=== PATIENT | male | born 1990 | race African-American/Black ===

== ENCOUNTER 2017-09-15 10:28 | Day surgery (SDC) | payer MEDICAID ==
[2017-09-12 16:02] LABS: BASOPHILS 0.2 % (0-2); EOSINOPHILS 0.1 % (0-7); HEMATOCRIT 42.7 % (42.0-54.0); HEMOGLOBIN 14.6 g/dL (13.5-17.5); IMMATURE GRANULOCYTES 0.3 % (0-5); LYMPHOCYTES 10.6 % (15-50); MCH 32.2 pg (26.0-34.0); MCHC 34.2 g/dL (31.0-37.0); MCV 94.3 fL (80.0-100.0); MEAN PLATELET VOLUME 10.3 fL (7.4-10.4); MONOCYTES 2.6 % (2-11); NEUTROPHILS 86.2 % (40-80); PLATELET COUNT 269 10x3/uL (130-400); RBC 4.53 10x6/uL (4.20-6.10); WBC 12.6 10x3/uL (4.8-10.8)
[2017-09-12 16:20] LABS: APPEARANCE CLEAR (CLEAR); BILIRUBIN NEGATIVE (NEGATIVE); COLOR YELLOW (YELLOW); GLUCOSE NEGATIVE (NEGATIVE); KETONE NEGATIVE (NEGATIVE); NITRITE NEGATIVE (NEGATIVE); PROTEIN NEGATIVE (NEGATIVE); UROBILINOGEN NORMAL (NORMAL)
[~2017-09-15] VITALS: Ht 172.7 cm; Wt 70.3 kg
[~2017-09-15 10:28] MED LIST: BACTRIM DS TABL1 TAB PO; HYDROCODONE-APA1 TAB PO; SANTYL30 GM TP
[2017-09-15 12:22] VITALS: BP 112/62; Ht 172.7 cm; Wt 70.3 kg
[2017-09-15] MEDS ORDERED: HYDROCODONE-APA1 TAB PO (14:59)
[2017-09-30] MEDS ORDERED: ENDOCET 10-3251 TAB PO (16:41)
--- NOTE | 2017-10-02 14:06 | OP ---
PATIENT NAME: MELVA ARGUETA MEDICAL RECORD: [id number] :88 LOCATION:D.OPS ADMISSION DATE: SURGEON: MARCOS WARREN MD DATE OF OPERATION: 09/15/2017 DATE OF OPERATION: 09/14/2017 PREOPERATIVE DIAGNOSIS: Open wound of the right tibia. POSTOPERATIVE DIAGNOSIS: Open wound of the right tibia. PROCEDURE: Excisional debridement of the open wound of the right tibia and treatment with Neox Bimal and Amniox graft. OPERATIVE SUMMARY IN DETAIL: After obtaining the appropriate preoperative orthopedic surgery consent as well as anesthetic consultation, evaluation and clearance, the patient was brought to the operating room and placed on the operating table in supine position. After adequate general laryngeal mask airway was administered, right lower extremity was prepped and draped in routine sterile fashion. Combination of curettage, scalpel as well as rongeurs were used to debride the area of opening. The plate on the tibia was clearly visualized. This area was copiously irrigated, slight undermining was then followed by sewing the Neox graft under the edges of the wound. A 4 x 3 Neox graft was sewn in using Amniox tissue itself. Neox Bimal was then reconstituted in saline and injected in about the area to aid with wound healing. Having completed this, sterile dressings were applied. The patient was awakened, taken to the recovery room in stable condition. All final needle and sponge counts were correct. TRANSINT:[id number] Voice Confirmation ID: [id number] DOCUMENT ID: [id number] MARCOS WARREN MD at 1406 CC: [id number] DICTATION DATE: 09/29/17 1529 MANAGER MARKETING SALES: 09/29/17 1644 [facility] 09/15/[address] [address]
== END 2017-09-15 17:15 | disposition home or self-care (01) ==
LOC: D.OPS 10:28 → D.PAN 14:30 → D.OPS 17:15
PROVIDERS: Anesthesiology
DX: S81.801A Unspecified open wound, right lower leg, initial encounter (principal); F17.200 Nicotine dependence, unspecified, uncomplicated; K21.9 Gastro-esophageal reflux disease without esophagitis; Z01.812 Encounter for preprocedural laboratory examination

== ENCOUNTER 2017-10-02 10:31 | Day surgery (SDC) | payer MEDICAID ==
[~2017-10-02] VITALS: Ht 175.3 cm; Wt 68.0 kg
--- NOTE | ~2017-10-02 | OP ---
PATIENT NAME: MELVA ARGUETA MEDICAL RECORD: [id number] :88 LOCATION:D.OPS ADMISSION DATE: SURGEON: MARCOS WARREN MD DATE OF OPERATION: 10/02/2017 PREOPERATIVE DIAGNOSIS: Open wound of the right ankle. POSTOPERATIVE DIAGNOSIS: Open wound of the right ankle. PROCEDURES: Excisional debridement of the open wound with application of both knee autograft and Vitagel. SURGEON: Marcos Warren MD ANESTHESIA: General. INTRAOPERATIVE COMPLICATIONS: None. SUMMARY OF PATHOLOGIC FINDINGS: Essentially, the wound was closed down to just about 1 screw in this very critical place to get the plate covered. OPERATIVE SUMMARY IN DETAIL: After obtaining the appropriate consent as well as anesthetic consultation, evaluation and clearance, the patient was brought to the operating room and placed on the operating table in supine position. After adequate general laryngeal mask was administered, the patient's right lower extremity was prepped and draped in routine sterile fashion. Very gentle use of a scalpel as well as rongeur and curette were used to clear away any appearing debris. At this point, a bulb syringe irrigation was used to try and decrease the bacterial colonization. Vitagel, that is the patient's own PRP mixed with synthetic collagen and prothrombin were placed into the cavity, this was then oversewn with Amniox graft of umbilical tissue. Sterile dressings were applied. He was awakened and taken to recovery room in stable condition. All final needle and sponge counts were correct. TRANSINT:[id number] Voice Confirmation ID: [id number] DOCUMENT ID: [id number] 10/21/2017 Edited per officethiago. BRIANA MORRISON, MARCOS PATINO at 1207 CC: [id number] DICTATION DATE: 10/17/17 1505 INFORMATION SYSTEMS COORDINATOR: 10/17/17 1541 [facility] 10/02/17 [place] [id number]
[~2017-10-02 10:31] MED LIST changes: +ENDOCET 10-3251 TAB PO
[2017-10-02 11:34] VITALS: BP 134/39; Ht 175.3 cm; Wt 68.0 kg
[2017-10-02] MEDS ORDERED: HYDROCODONE-APA1 TAB PO (13:03)
== END 2017-10-02 14:50 | disposition home or self-care (01) ==
LOC: D.OPS 10:31 → D.PAN 12:45 → D.OPS 14:50
DX: S81.801A Unspecified open wound, right lower leg, initial encounter (principal); F17.200 Nicotine dependence, unspecified, uncomplicated; Z01.812 Encounter for preprocedural laboratory examination

== ENCOUNTER 2017-11-06 11:52 | Inpatient (IN) | payer MEDICAID ==
[2017-11-04 08:31] LABS: BASOPHILS 0.3 % (0-2); EOSINOPHILS 3.4 % (0-7); HEMATOCRIT 44.5 % (42.0-54.0); HEMOGLOBIN 14.8 g/dL (13.5-17.5); LYMPHOCYTES 36.6 % (15-50); MCH 32.1 pg (26.0-34.0); MCHC 33.3 g/dL (31.0-37.0); MCV 96.5 fL (80.0-100.0); MONOCYTES 7.3 % (2-11); NEUTROPHILS 52.4 % (40-80); RBC 4.61 10x6/uL (4.20-6.10); WBC 7.6 10x3/uL (4.8-10.8)
[2017-11-04 08:33] LABS: PLATELET COUNT 191 10x3/uL (130-400)
[~2017-11-06] VITALS: Ht 175.3 cm; Wt 62.3 kg
--- NOTE | ~2017-11-06 | OP ---
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 PROCEDURES: 1. Removal of previously placed tibial plate. 2. Excisional debridement of area of infection to include skin, subcutaneous tissue, portions of fat, fascia, muscle and bone. 3. Intramedullary fixation of infected nonunion of the right tibia. SURGEON: Marcos Warren MD ANESTHESIA: General. INTRAOPERATIVE COMPLICATIONS: None. SUMMARY OF PATHOLOGIC FINDINGS: The patient indeed did have a nonunion; however, there was more adherent stability than one would think. These did require curettage between the 2 bone ends as well as removal of any infectious appearing material around the small area that was still open from the index procedure, and after the plate was removed it did require intramedullary fixation with the reamed nail. OPERATIVE SUMMARY IN DETAIL: After obtaining the appropriate preoperative orthopedic surgery consent as well as anesthetic consultation, evaluation and clearance, the patient was brought to the operating room and placed on operating table in supine position. After general laryngeal mask was administered, tourniquet was placed about the proximal aspect of the right lower extremity. Right lower extremity was then prepped and draped in routine sterile fashion. The leg was elevated and exsanguinated, tourniquet inflated to 350 mmHg. The small area that was opened immediately over the plate measured less than 1 cm; however, upon making the incision down the previous operative incision, the patient did have obviously areas of continued infection despite multiple attempts at trying to get this to close. The plate was removed with serial and sequential removal of the screws and plate was removed and at this point further curettage and scalpel debridement of the nonviable-appearing material was carried out. Having completed this in conjunction with copious bulb syringe, attention was turned to the intramedullary fixation. Small incision was made just along the patellar tendon in this case on the medial side. Starting awl was then utilized to start the placement of the ball-tipped guidewire. Ball-tipped guidewire was then advanced under fluoroscopy across the fracture sites in the distal ankle. Serial and sequential reaming was then done to a size 10 for a size 9 x 330 damion. The damion was then placed again under fluoroscopic guidance across the fracture site while holding the fracture site in neutral alignment. Having placed the damion to its appropriate depth distally, 2 interlocking screws were placed in both sagittal and coronal planes. Having completed this, gentle back tapping was done to compress the bone fragments and then the proximal aspect was locked. A 15 mm in cap was placed. The incision of the knee and the small locking holes were closed in the usual fashion and then the large open area where the plate had been was closed with a combination OPERATIVE REPORT [id number] MELVA ARGUETA of 2-0 Vicryl, 2-0 Prolene and skin nimco. Sterile dressings were applied. Tourniquet was deflated. The patient was awakened, taken to recovery room in stable condition. All final needle and sponge counts were correct. TRANSINT:[id number] Voice Confirmation ID: [id number] DOCUMENT ID: [id number] BRIANA MORRISON, MARCOS PATINO at 1104 CC: [id number] DICTATION DATE: 11/06/17 183 BLOWER MECHANIC: 11/06/172026 ADM IN [facility] [address] [place] [address]
[2017-11-06 13:09] VITALS: BP 112/71; BMI 20.2
[2017-11-06 18:14] VITALS: BP 107/68
[2017-11-06 22:44] VITALS: BP 104/60
[2017-11-07 01:30] VITALS: BP 103/63
[2017-11-07 02:40] VITALS: BP 104/60; BMI 20.2
[2017-11-07 04:47] LABS: HEMATOCRIT 38.4 % (42.0-54.0); HEMOGLOBIN 12.9 g/dL (13.5-17.5)
[2017-11-07 05:21] VITALS: BP 115/74
[2017-11-07 08:07] VITALS: BP 113/59
[2017-11-07 12:17] VITALS: BP 120/61
[2017-11-07 15:46] VITALS: BP 110/65
[2017-11-08 04:05] VITALS: BP 103/64
[2017-11-08 05:42] LABS: HEMATOCRIT 32.8 % (42.0-54.0)
[2017-11-08 09:46] VITALS: BP 121/75
[2017-11-08 12:34] VITALS: BP 125/72
[2017-11-08 17:05] VITALS: BP 146/64
[2017-11-08 22:02] VITALS: BP 128/75
[2017-11-09 01:28] VITALS: BP 115/67
[2017-11-09 05:06] VITALS: BP 116/68
[2017-11-09 06:34] LABS: HEMATOCRIT 37.7 % (42.0-54.0); HEMOGLOBIN 12.7 g/dL (13.5-17.5)
[2017-11-09 09:07] VITALS: BP 109/47
[2017-11-09 17:09] VITALS: BP 109/49
[2017-11-09 21:40] VITALS: BP 143/68
[2017-11-10 00:56] VITALS: BP 118/65
[2017-11-10 04:23] VITALS: BP 125/56
[2017-11-10 08:15] VITALS: BP 110/66
[2017-11-10 12:53] VITALS: BP 113/55
[2017-11-10 13:11] VITALS: Ht 175.3 cm; Wt 62.3 kg
[2017-11-10 16:02] VITALS: BP 102/66
[2017-11-10 20:21] VITALS: BP 118/68
[2017-11-11 04:00] VITALS: BP 102/50
[2017-11-11 05:40] LABS: BASOPHILS 0.2 % (0-2); EOSINOPHILS 4.5 % (0-7); HEMATOCRIT 36.5 % (42.0-54.0); HEMOGLOBIN 12.2 g/dL (13.5-17.5); IMMATURE GRANULOCYTES 0.2 % (0-5); LYMPHOCYTES 39.6 % (15-50); MCH 31.8 pg (26.0-34.0); MCHC 33.4 g/dL (31.0-37.0); MCV 95.1 fL (80.0-100.0); MEAN PLATELET VOLUME 10.6 fL (7.4-10.4); MONOCYTES 9.8 % (2-11); NEUTROPHILS 45.7 % (40-80); PLATELET COUNT 220 10x3/uL (130-400); RBC 3.84 10x6/uL (4.20-6.10); RDW 13.4 % (11.5-14.5); WBC 8.2 10x3/uL (4.8-10.8)
[2017-11-11 05:50] LABS: CALC OSMOLALITY 286 mosm/kg (275-300); CALCIUM 8.7 mg/dL (8.5-10.1); CARBON DIOXIDE 29.5 mmol/L (21.0-32.0); CHLORIDE - SERUM 107 mmol/L (98-107); CREATININE - SERUM 1.2 mg/dL (0.6-1.3); GLUCOSE 79 mg/dL (74-106); POTASSIUM - SERUM 4.3 mmol/L (3.5-5.1); SODIUM 144 mmol/L (136-145); UREA NITROGEN 16 mg/dL (7-18); eGFR NON AFRICAN AMERICAN 77 mL/min (90-120)
[2017-11-11 07:55] VITALS: BP 113/62
[2017-11-11 11:52] VITALS: BP 128/78
[2017-11-11 16:11] VITALS: BP 100/52
[2017-11-11 20:00] VITALS: BP 108/52
[2017-11-12 04:00] VITALS: BP 104/58
[2017-11-12 05:03] LABS: HEMATOCRIT 36.6 % (42.0-54.0); HEMOGLOBIN 12.3 g/dL (13.5-17.5)
[2017-11-12 05:25] LABS: ANION GAP 15.4 mmol/L (8-16); C-REACTIVE PROTEIN 6.3 mg/dL (0.0-0.9); CALCIUM 8.6 mg/dL (8.5-10.1); CARBON DIOXIDE 24.5 mmol/L (21.0-32.0); POTASSIUM - SERUM 3.9 mmol/L (3.5-5.1)
[2017-11-12 05:32] LABS: CREATININE - SERUM 3.3 mg/dL (0.6-1.3)
[2017-11-12 06:16] LABS: ERYTHROCYTE SEDIMENTATION RATE 38 mm/hr (0-15)
[2017-11-12 08:17] VITALS: BP 101/48
[2017-11-12 08:32] LABS: BASOPHILS 0.1 % (0-2); EOSINOPHILS 1.7 % (0-7); HEMATOCRIT 35.9 % (42.0-54.0); HEMOGLOBIN 12.2 g/dL (13.5-17.5); IMMATURE GRANULOCYTES 0.3 % (0-5); LYMPHOCYTES 13.4 % (15-50); MCH 31.6 pg (26.0-34.0); MEAN PLATELET VOLUME 10.8 fL (7.4-10.4); MONOCYTES 12.8 % (2-11); NEUTROPHILS 71.7 % (40-80); PLATELET COUNT 217 10x3/uL (130-400); RBC 3.86 10x6/uL (4.20-6.10); RDW 13.2 % (11.5-14.5)
[2017-11-12 08:50] LABS: WBC 14.5 10x3/uL (4.8-10.8)
[2017-11-12 11:55] VITALS: BP 115/64
[2017-11-12 16:33] VITALS: BP 111/56
[2017-11-12 20:00] VITALS: BP 117/55
[2017-11-13 04:00] VITALS: BP 116/56
[2017-11-13 04:41] LABS: BASOPHILS 0.2 % (0-2); EOSINOPHILS 1.3 % (0-7); HEMATOCRIT 36.8 % (42.0-54.0); HEMOGLOBIN 12.5 g/dL (13.5-17.5); IMMATURE GRANULOCYTES 0.3 % (0-5); LYMPHOCYTES 16.7 % (15-50); MCH 31.5 pg (26.0-34.0); MCV 92.7 fL (80.0-100.0); MEAN PLATELET VOLUME 10.2 fL (7.4-10.4); MONOCYTES 13.4 % (2-11); NEUTROPHILS 68.1 % (40-80); PLATELET COUNT 217 10x3/uL (130-400); RBC 3.97 10x6/uL (4.20-6.10); RDW 13.1 % (11.5-14.5); WBC 14.1 10x3/uL (4.8-10.8)
[2017-11-13 05:03] LABS: ANION GAP 15.1 mmol/L (8-16); CARBON DIOXIDE 25.9 mmol/L (21.0-32.0); CREATININE - SERUM 3.8 mg/dL (0.6-1.3); PHOSPHOROUS 4.1 mg/dL (2.5-4.9); VANCOMYCIN - RANDOM 9.5 ug/mL (10.0-20.0)
[2017-11-13 08:38] VITALS: BP 115/60
[2017-11-13 11:37] LABS: APPEARANCE CLEAR (CLEAR); BILIRUBIN NEGATIVE (NEGATIVE); COLOR YELLOW (YELLOW); GLUCOSE NEGATIVE (NEGATIVE); KETONE NEGATIVE (NEGATIVE); NITRITE NEGATIVE (NEGATIVE); PROTEIN NEGATIVE (NEGATIVE); SPECIFIC GRAVITY 1.005 (1.005-1.020); UROBILINOGEN NORMAL (NORMAL)
[2017-11-13 11:40] LABS: CREATININE - URINE 85.2 mg/dL (30-125); PRO/CRE RATIO URINE 0.2 mg/g; PROTEIN - URINE 17.6 mg/dL (0.0-11.9)
[2017-11-13 11:44] LABS: UDS - AMPHET NEGATIVE QUAL (NEGATIVE); UDS - BARB NEGATIVE QUAL (NEGATIVE); UDS - BENZO NEGATIVE QUAL (NEGATIVE); UDS - COCAINE NEGATIVE QUAL (NEGATIVE); UDS - OPIATE POSITIVE QUAL (NEGATIVE); UDS - PCP NEGATIVE QUAL (NEGATIVE); UDS - THC POSITIVE QUAL (NEGATIVE)
[2017-11-13 11:46] VITALS: BP 123/66
[2017-11-13 16:25] VITALS: BP 128/65
[2017-11-13 20:00] VITALS: BP 114/56
[2017-11-14] VITALS: BP 126/52
[2017-11-14 04:00] VITALS: BP 121/55
[2017-11-14 05:35] LABS: BASOPHILS 0.2 % (0-2); EOSINOPHILS 1.5 % (0-7); HEMATOCRIT 37.3 % (42.0-54.0); HEMOGLOBIN 12.7 g/dL (13.5-17.5); IMMATURE GRANULOCYTES 0.3 % (0-5); LYMPHOCYTES 19.1 % (15-50); MCH 31.8 pg (26.0-34.0); MCV 93.5 fL (80.0-100.0); MEAN PLATELET VOLUME 10.8 fL (7.4-10.4); MONOCYTES 13.5 % (2-11); NEUTROPHILS 65.4 % (40-80); PLATELET COUNT 244 10x3/uL (130-400); RBC 3.99 10x6/uL (4.20-6.10); WBC 15.1 10x3/uL (4.8-10.8)
[2017-11-14 05:44] LABS: ANION GAP 16.8 mmol/L (8-16); CALCIUM 9.3 mg/dL (8.5-10.1); CARBON DIOXIDE 26.5 mmol/L (21.0-32.0); CREATININE - SERUM 3.7 mg/dL (0.6-1.3); PHOSPHOROUS 4.4 mg/dL (2.5-4.9); POTASSIUM - SERUM 4.3 mmol/L (3.5-5.1)
[2017-11-14 08:06] VITALS: BP 113/62
[2017-11-14] MEDS ORDERED: LEVAQUIN750 MG PO (10:57)
[2017-11-14] MEDS ORDERED: ROCEPHIN 2 GM/D52 G1 IV (10:58)
[2017-11-14] MEDS ORDERED: ELIQUIS2.5 MG PO (10:59)
[2017-11-14 12:02] VITALS: BP 114/68
== END 2017-11-14 17:30 | disposition home health service (06) | DRG 493 ==
LOC: D.MS 11:52 → D.SDCHOLD 11:52 → D.PAN 13:15 → D.SDCHOLD 13:15 → EDSTATUS 13:15 → D.OPS 13:15 → D.MS 17:28
PROVIDERS: Anesthesiology; Internal Medicine Nephrology; Orthopaedic Surgery; Student in an Organized Health Care Education/Training Program
PROC: 0QPG04Z Removal of Internal Fixation Device from Right Tibia, Open Approach (ICD-10-PCS; 2017-11-06)
PROC: 0QSG04Z Reposition Right Tibia with Internal Fixation Device, Open Approach (ICD-10-PCS; principal; 2017-11-06 12:30)
PROC: 02HV33Z Insertion of Infusion Device into Superior Vena Cava, Percutaneous Approach (ICD-10-PCS; 2017-11-14)
PROC: B548ZZA Ultrasonography of Superior Vena Cava, Guidance (ICD-10-PCS; 2017-11-14)
DX: T84.622A Infection and inflammatory reaction due to internal fixation device of right tibia, initial encounter (principal); S82.301 Unspecified fracture of lower end of right tibia; N17.9 Acute kidney failure, unspecified; M86.461 Chronic osteomyelitis with draining sinus, right tibia and fibula; W01.0XXD Fall on same level from slipping, tripping and stumbling without subsequent striking against object, subsequent encounter; F12.90 Cannabis use, unspecified, uncomplicated; F14.90 Cocaine use, unspecified, uncomplicated; F11.90 Opioid use, unspecified, uncomplicated; F17.200 Nicotine dependence, unspecified, uncomplicated; B96.20 Unspecified Escherichia coli [E. coli] as the cause of diseases classified elsewhere; B96.89 Other specified bacterial agents as the cause of diseases classified elsewhere

== ENCOUNTER → 2017-11-17 12:21 | Outpatient (CLI) | payer MEDICAID ==
[2017-11-10 13:11] VITALS: BMI 20.2
[~2017-11-17 12:21] MED LIST changes: +ELIQUIS2.5 MG PO; +LEVAQUIN750 MG PO; +ROCEPHIN 2 GM/D52 G1 IV
[2017-11-17 14:29] LABS: BASOPHILS 0.4 % (0-2); EOSINOPHILS 3.5 % (0-7); HEMATOCRIT 33.7 % (42.0-54.0); HEMOGLOBIN 11.2 g/dL (13.5-17.5); IMMATURE GRANULOCYTES 0.3 % (0-5); LYMPHOCYTES 17.3 % (15-50); MCH 31.4 pg (26.0-34.0); MCHC 33.2 g/dL (31.0-37.0); MCV 94.4 fL (80.0-100.0); MONOCYTES 12.2 % (2-11); NEUTROPHILS 66.3 % (40-80); RBC 3.57 10x6/uL (4.20-6.10)
[2017-11-17 14:32] LABS: PLATELET COUNT 413 10x3/uL (130-400)
[2017-11-17 14:39] LABS: C-REACTIVE PROTEIN 8.5 mg/dL (0.0-0.9); CREATININE - SERUM 2.7 mg/dL (0.6-1.3)
[2017-11-17 15:34] LABS: ERYTHROCYTE SEDIMENTATION RATE 52 mm/hr (0-15)
== END | disposition home or self-care (01) ==
LOC: D.LABREF 12:21
PROVIDERS: Internal Medicine Nephrology
DX: M86.9 Osteomyelitis, unspecified (principal)

== ENCOUNTER → 2017-11-24 13:21 | Outpatient (CLI) | payer MEDICAID ==
[2017-11-10 13:11] VITALS: BMI 20.2
[2017-11-24 14:22] LABS: BASOPHILS 0.4 % (0-2); HEMATOCRIT 29.9 % (42.0-54.0); HEMOGLOBIN 9.9 g/dL (13.5-17.5); IMMATURE GRANULOCYTES 0.4 % (0-5); LYMPHOCYTES 30.4 % (15-50); MCH 31.1 pg (26.0-34.0); MCHC 33.1 g/dL (31.0-37.0); MEAN PLATELET VOLUME 9.9 fL (7.4-10.4); MONOCYTES 7.8 % (2-11); RBC 3.18 10x6/uL (4.20-6.10); RDW 13.1 % (11.5-14.5); WBC 11.9 10x3/uL (4.8-10.8)
[2017-11-24 14:25] LABS: C-REACTIVE PROTEIN 3.1 mg/dL (0.0-0.9); CREATININE - SERUM 1.4 mg/dL (0.6-1.3)
[2017-11-24 14:29] LABS: PLATELET COUNT 570 10x3/uL (130-400)
[2017-11-24 15:14] LABS: ERYTHROCYTE SEDIMENTATION RATE 16 mm/hr (0-15)
== END | disposition home or self-care (01) ==
LOC: D.LABREF 13:21
PROVIDERS: Student in an Organized Health Care Education/Training Program
DX: T84.624A Infection and inflammatory reaction due to internal fixation device of right fibula, initial encounter (principal)

== ENCOUNTER 2017-11-27 11:27 | Outpatient (CLI) | payer MEDICAID | END 2017-11-27 13:25 | disposition home or self-care (01) | LOC: D.OPS 11:27 | DX: T14.8XXA Other injury of unspecified body region, initial encounter (principal); Z01.812 Encounter for preprocedural laboratory examination ==

== ENCOUNTER → 2017-12-08 13:05 | Outpatient (CLI) | payer MEDICAID ==
[2017-11-10 13:11] VITALS: BMI 20.2
[2017-12-08 13:33] LABS: BASOPHILS 0.3 % (0-2); EOSINOPHILS 5.5 % (0-7); HEMATOCRIT 40.5 % (42.0-54.0); HEMOGLOBIN 13.5 g/dL (13.5-17.5); IMMATURE GRANULOCYTES 0.1 % (0-5); LYMPHOCYTES 32.6 % (15-50); MCH 31.2 pg (26.0-34.0); MCHC 33.3 g/dL (31.0-37.0); MCV 93.5 fL (80.0-100.0); MEAN PLATELET VOLUME 11.2 fL (7.4-10.4); MONOCYTES 7.7 % (2-11); NEUTROPHILS 53.8 % (40-80); RBC 4.33 10x6/uL (4.20-6.10); RDW 13.7 % (11.5-14.5); WBC 7.1 10x3/uL (4.8-10.8)
[2017-12-08 13:43] LABS: PLATELET COUNT 294 10x3/uL (130-400)
[2017-12-08 13:49] LABS: C-REACTIVE PROTEIN 0.7 mg/dL (0.0-0.9); CREATININE - SERUM 1.2 mg/dL (0.6-1.3)
[2017-12-08 14:57] LABS: ERYTHROCYTE SEDIMENTATION RATE 5 mm/hr (0-15)
== END | disposition home or self-care (01) ==
LOC: D.LABREF 13:05
PROVIDERS: Student in an Organized Health Care Education/Training Program
DX: M86.9 Osteomyelitis, unspecified (principal); T84.624A Infection and inflammatory reaction due to internal fixation device of right fibula, initial encounter; A49.8 Other bacterial infections of unspecified site

== ENCOUNTER 2018-02-02 12:44 | Day surgery (SDC) | payer MEDICAID ==
[~2018-02-02] VITALS: Ht 172.7 cm; Wt 63.5 kg
--- NOTE | ~2018-02-02 | OP ---
PATIENT NAME: PHU BERNABE MEDICAL RECORD: [id number] :88 LOCATION:D.OPS ADMISSION DATE: SURGEON: MARCOS WARREN MD DATE OF OPERATION: 02/02/2018 PREOPERATIVE DIAGNOSIS: Tibial nonunion of the right tibia. POSTOPERATIVE DIAGNOSIS: Tibial nonunion of the right tibia. PROCEDURE: Dynamization of the right tibia with hardware removal (hardware removal, deep). SURGEON: Marcos Warren MD ANESTHESIA: General. INTRAOPERATIVE COMPLICATIONS: None. INDICATIONS: Phu Bernabe is a 27-year-old gentleman who sustained an open tibia fracture with substantial amount of bone loss, although initially treated with a plate, this was infected. The plate was removed and an intramedullary nail was placed. The wound has long since healed and there has been no further sign of infection; however, he has developed a nonunion despite EBS bone stimulator. The decision was made to remove the proximal screw for dynamization. OPERATIVE SUMMARY IN DETAIL: After obtaining the appropriate preoperative orthopedic surgery consent as well as anesthetic consultation, evaluation and clearance, the patient was brought to the operating room and placed on the operating table in supine position. After adequate general laryngeal mask was administered, the patient's right lower extremity was prepped and draped in routine sterile fashion. Under direct fluoroscopic guidance, a small incision was made. A screwdriver was then placed into the proximal and locking screw was removed, very little degree of difficulty. Final fluoroscopy was submitted for radiology review, 4-0 Prolene was used to close the incision. Sterile dressings were applied. The patient was awakened, taken to recovery in stable condition. All final needle and sponge counts were correct. TRANSINT:[id number] Voice Confirmation ID: [id number] DOCUMENT ID: [id number] MARCOS WARREN MD at 1518 CC: [id number] DICTATION DATE: 02/19/18821 PACK PRESS OPERATOR: 02/19/18 1353 [facility] 02/02/[address] [address]
[~2018-02-02 12:44] MED LIST changes: +KEFLEX500 MG PO; +NEURONTIN 300300 MG PO; +PROBIOTIC1 EAC1 PO
[2018-02-02 13:59] VITALS: BP 115/64; Ht 172.7 cm; Wt 63.5 kg
[2018-02-02] MEDS ORDERED: PERCOCET 10/3251 TA1 PO (18:42)
== END 2018-02-02 19:25 | disposition home or self-care (01) ==
LOC: D.OPS 12:44 → D.PAN 14:30 → D.OPS 14:30
DX: S82.91 Unspecified fracture of right lower leg (principal); M86.9 Osteomyelitis, unspecified; M79.2 Neuralgia and neuritis, unspecified; F17.200 Nicotine dependence, unspecified, uncomplicated; Z01.812 Encounter for preprocedural laboratory examination

== ENCOUNTER → 2018-02-10 14:42 | Outpatient (CLI) | payer MEDICAID ==
[2018-02-02 13:59] VITALS: BMI 21.3
[~2018-02-10 14:42] MED LIST changes: +PERCOCET 10/3251 TA1 PO
[2018-02-10 20:00] LABS: BASOPHILS 0.2 % (0-2); EOSINOPHILS 4.5 % (0-7); HEMATOCRIT 46.9 % (42.0-54.0); HEMOGLOBIN 15.6 g/dL (13.5-17.5); IMMATURE GRANULOCYTES 0.2 % (0-5); LYMPHOCYTES 30.5 % (15-50); MCH 31.9 pg (26.0-34.0); MCHC 33.3 g/dL (31.0-37.0); MCV 95.9 fL (80.0-100.0); MEAN PLATELET VOLUME 11.1 fL (7.4-10.4); MONOCYTES 8.6 % (2-11); PLATELET COUNT 301 10x3/uL (130-400); RBC 4.89 10x6/uL (4.20-6.10); RDW 14.4 % (11.5-14.5); WBC 9.4 10x3/uL (4.8-10.8)
[2018-02-10 20:11] LABS: C-REACTIVE PROTEIN 0.6 mg/dL (0.0-0.9)
[2018-02-10 21:25] LABS: ERYTHROCYTE SEDIMENTATION RATE 4 mm/hr (0-15)
== END | disposition home or self-care (01) ==
LOC: D.LABREF 14:42
PROVIDERS: Student in an Organized Health Care Education/Training Program
DX: M86.9 Osteomyelitis, unspecified (principal); Z51.81 Encounter for therapeutic drug level monitoring; Z79.2 Long term (current) use of antibiotics